=== PATIENT | male | born 1960 | race Caucasian/White ===

== ENCOUNTER → 2016-09-26 | Day surgery (SDC) | payer OTHER ==
[~2016-09-26] VITALS: Ht 182.9 cm; Wt 79.6 kg
[~2016-09-26] MED LIST: ACET300T49 PO; BUPIVACAINE/EPINEPHRINE 0.5% PF 30 ML VIAL ONE; CHLORHEXIDINE GLUCONATE 2 % 1 PACK (2 CLOTHS) TOPICAL PRN; DENO120P SQ; INSULIN HUMAN REGULAR 1,000 UNITS/10 ML VIAL SQ PRN; LACTATED RINGER'S 1000 ML IV PRN; LIDOCAINE 1%/EPINEPHrine 1:100,000 SOLN 20 ML VIAL ONE; METOPROLOL TARTRATE 25 MG TAB PO PRN; MIDAZOLAM HCL 2 MG/2 ML VIAL ONE; POVIDONE IODINE 5% (ANTISEPSIS KIT) 4 APPLICATIONS EACH NARE PRN; PROPOFOL 200 MG/20 ML AMP IV ONE; SILVER SULFADIAZINE/LIDOCAINE CREAM 60 GM JAR RECTAL PRN; SODIUM CHLORID 0.9% 500 ML IV PRN; SUTE25CA PO; TRAM50TA PO
[2016-09-26 14:05] VITALS: BP 128/83; PULSE 75; RESP 20; TEMP 98.1; O2SAT 98
--- NOTE | 2016-09-26 14:09 | PD.HP.UP ---
H&P Update Note The Pre-Admit History and Physical Examination regarding the above named patient was reviewed (including, but not limited to, vital signs, heart, lungs, co-morbid conditions), and upon re-examination it is noted that: the patient's condition has not significantly changed since the last examination. Humberto Trivedi MD Sep 26, 2016 14:09
[2016-09-26 14:41] LABS: BASOPHIL % 0.4 % (0.0-2.0); EOSINOPHIL # 0.1 TH/MM3 (0-0.4); HEMATOCRIT 35.9 % (39.0-51.0); HEMO FLAGS DIFF FINAL; LYMPH % 28.8 % (9.0-44.0); LYMPHOCYTE # 1.5 TH/MM3 (1.0-4.8); MEAN CELL VOLUME 97.3 FL (80.0-100.0); MEAN CORPUSCULAR HEMOGLOBIN 33.7 PG (27.0-34.0); MEAN CORPUSCULAR HGB CONC 34.6 % (32.0-36.0); MONO % 10.2 % (0.0-8.0); NEUT % 58.6 % (16.0-70.0); PLATELET COUNT 333 TH/MM3 (150-450); RED BLOOD COUNT 3.69 MIL/MM3 (4.50-5.90); WHITE BLOOD COUNT 5.1 TH/MM3 (4.0-11.0)
--- NOTE | 2016-09-26 16:22 | HHI.PR ---
Immediate Post Op Note Procedure Date: Sep 26, 2016 Pre Op Diagnosis: Anal abscess/fistula Post Op Diagnosis: mult fistulas Surgeon: Humberto Trivedi Condenser Cleaner(s): none Procedure: EUA, drainage abscess, fistulotomies Findings: post abscess, mult subcut/submuscular fistulas posteriorly, opened, debrided Complications: none Specimen(s) removed: fistulas, abscess cavity Estimated blood loss: min Anesthesia: MAC Drains: None IVF Patient to: PACU Patient Condition: Good Humberto Trivedi MD Sep 26, 2016 16:22
[2016-09-26 16:50] VITALS: BP 137/78; PULSE 73; RESP 16; TEMP 98.5; O2SAT 100
[2016-09-26] MEDS: oxyCODONE/ACETAMINOPHEN 10 MG/325 MG TAB PO PRN (17:20)
--- NOTE | 2016-09-27 11:47 | EKG ---
Date Performed: 09/26/2016 Time Performed: 14:27:43 PTAGE: 56 years EKG: Sinus rhythm RIGHT BUNDLE BRANCH BLOCK ABNORMAL ECG NO PREVIOUS TRACING DOCTOR: Josiah Martinez Interpretating Date/Time 09/27/2016 11:41:49
--- NOTE | 2016-09-28 07:34 | MP ---
cc: OLGA QUINONES M.D. DATE OF SURGERY September 26, 2016 PREOPERATIVE DIAGNOSIS Perianal abscess and fistula. PROCEDURE 1. Exam under anesthesia with drainage of perianal abscess and fistulotomy. 2. Removal of skin tags. POSTOPERATIVE DIAGNOSIS Perianal abscess and fistula. SURGEON Dr. Olga Quinones PROCEDURE The patient was placed in the left lateral decubitus position. After adequate anesthesia sedation the buttocks were taped apart, prepped with Betadine solution and draped in the usual sterile fashion. Additionally, local anesthesia was obtained by injection of 1% Xylocaine/0.5% Marcaine with epinephrine. The canal was gently dilated and a half-trevino retractor inserted. Examination revealed induration and thickening along the posterior midline. Several openings and crypts were present, one that passed directly into the anal canal around the dentate line. This fistula was opened undermining a cavity and some purulent fluid. Skin tags were taken off from the lateral sides of the posterior canal and two other little subcutaneous fistulas were also unroofed. The wound was trimmed of additional skin tags and hemostasis achieved with electrocautery. No other additional fistulas or abscess cavities were identified. Fairly large hemorrhoids were present in the anterior part of the canal. After irrigating and additional inspection, the area was packed with a Surgicel gauze and a large fluff dressing externally. The patient tolerated the procedure quite well and was brought to recovery room in stable condition. MD PHILLIP Limon/MANDO /10:49 PM /7:24 AM
== END | disposition home or self-care (01) ==
LOC: HSDC 13:45
PROVIDERS: ATTEND Colon & Rectal Surgery
DX: K60.3 Anal fistula (principal); K64.4 Residual hemorrhoidal skin tags; R94.31 Abnormal electrocardiogram [ECG] [EKG]
CPT/HCPCS: 00902; 46230; 46270; 85025; 88304; 93005; J2250; J3010